=== PATIENT | female | born 1950 | race Caucasian/White ===

== ENCOUNTER 2017-03-28 12:26 | Outpatient (CLI) | payer MEDICARE | END 2017-03-28 12:27 | disposition critical access hospital (66) | LOC: EMS 12:26 | PROVIDERS: ATTEND Surgery | DX: M54.9 Dorsalgia, unspecified (principal) | CPT/HCPCS: A0425; A0427 ==

== ENCOUNTER 2017-03-28 12:41 | Emergency (ER) | payer MEDICARE ==
[2017-03-28] MEDS ORDERED: HYDROmorphone 1 MG/ML SYRINGE IVP STA ×3 (12:52→17:33)
[2017-03-28] MEDS ORDERED: ONDANSETRON 4 MG/2 ML VIAL IVP STA (12:52)
[2017-03-28] MEDS ORDERED: SODIUM CHLORIDE FLUSH 0.9% 10 ML SYRINGE IVP ONE ×3 (12:59→17:46)
[2017-03-28] MEDS ORDERED: SODIUM CHLORIDE 0.9% 1,000 ML IV ONE (12:59)
[2017-03-28] MEDS ORDERED: ONDANSETRON 4 MG/2 ML VIAL ONE (12:59)
[2017-03-28] MEDS ORDERED: HYDROmorphone 1 MG/ML SYRINGE ONE ×3 (12:59→17:38)
--- NOTE | 2017-03-28 13:03 | ED Physician Documentation ---
PD HPI ABD PAIN - Stated complaint Stated Complaint: BACK PX - Chief complaint Chief Complaint: Abd Pain - History obtained from History obtained from: Patient, EMS - History of Present Illness Timing - onset: Other (Sudden onset epigastric pain radiating to the back this morning after eating an Chinese muffin with peanut butter. She has never had this before. She has been vomiting as well. She had a very small bowel movement before and after the pain started. No history of abdominal surgeries, her only surgical history is mastectomies.) Review of Systems Ten Systems: 10 systems reviewed and negative Constitutional: denies: Fever, Chills Cardiac: denies: Chest pain / pressure, Palpitations Respiratory: denies: Dyspnea, Cough GI: reports: Abdominal Pain, Nausea, Vomiting, Constipation. denies: Diarrhea PD PAST MEDICAL HISTORY - Past Medical History Past Medical History: Yes Cardiovascular: None Respiratory: None Neuro: None Endocrine/Autoimmune: None L[employer] ATTENDANT: Breast cancer Psych: Depression, Anxiety Musculoskeletal: Osteoarthritis, Fatigue, Other - Present Medications Home Medications: Ambulatory Orders Medication Instructions Recorded Confirmed Cholecalciferol (Vitamin D3) 2,000 unit PO 03/28/17 [Vitamin D] Loratadine [Allergy] 03/28/17 Lorazepam 1 mg PO 03/28/17 Multivitamin/Iron/Folic Acid 03/28/17 [Centrum Women Tablet] Omeprazole 20 mg PO 03/28/17 Venlafaxine ER [Effexor ER] 150 mg PO DAILY 03/28/17 03/28/17 - Allergies Allergies/Adverse Reactions: Allergies Allergy/AdvReac Type Severity Reaction Status Date / Time No Known Drug Allergies Allergy Verified 03/28/17 12:48 - Social History Does the pt smoke?: No Smoking Status: Never smoker Does the pt drink ETOH?: Yes Does the pt have substance abuse?: No - Family History Family history: reports: Non contributory PD ED PE NORMAL - Vitals Vital signs reviewed: Yes - General General: Alert and oriented X 3, Other (Retching, clearly in pain) - HEENT HEENT: PERRL, EOMI - Neck Neck: Supple, no meningeal sign, No bony TTP - Cardiac Cardiac: RRR, No murmur - Respiratory Respiratory: No respiratory distress, Clear bilaterally - Abdomen Abdomen: Other (Some diffuse tenderness but most obvious in the upper abdomen and right upper quadrant with positive Aviles sign) - Back Back: No CVA TTP, No spinal TTP - Derm Derm: Normal color, Warm and dry - Extremities Extremities: No edema, No calf tenderness / cord - Neuro Neuro: Alert and oriented X 3, Normal speech - Psych Psych: Normal mood, Normal affect Results - Vitals Vitals: Vital Signs - 24 hr 03/28/17 03/28/17 03/28/17 12:44 14:00 15:06 Temperature 35.9 C L Heart Rate 66 91 91 Respiratory 22 18 18 Rate Blood Pressure 132/83 H 169/83 H 136/59 H O2 Saturation 98 96 98 03/28/17 16:40 Temperature Heart Rate 85 Respiratory 18 Rate Blood Pressure 158/69 H O2 Saturation 97 Oxygen O2 Source Nasal cannula Oxygen Flow Rate 2 - EKG (time done) 1309 Rate: Rate (enter#) (84) Rhythm: NSR, LAE Intervals: RBBB Ischemia: Normal ST segments Computer interpretation: Agree with computer - Labs Labs: Laboratory Tests 03/28/17 03/28/17 03/28/17 13:05 13:05 13:05 WBC 12.8 H RBC 4.55 Hgb 12.9 Hct 38.8 MCV 85.3 MCH 28.4 MCHC 33.2 RDW 14.1 Plt Count 254 MPV 8.7 Neut # Not Reportable Lymph # Not Reportable Riley # Not Reportable Eos # Not Reportable Baso # Not Reportable Absolute Nucleated RBC Not Reportable Band Neuts % (Manual) 1 Neutrophils # (Manual) 11.8 H Lymphocytes # (Manual) 0.6 L Monocytes # (Manual) 0.4 Nucleated RBCs Not Reportable Differential Comment MANUAL DIFFERENTIAL Platelet Estimate NORMAL (130-450,000) Platelet Morphology NORMAL APPEARANCE RBC Morph Micro Appear NORMAL APPEARANCE Sodium 137 Potassium 3.8 Chloride 103 Carbon Dioxide 23 Anion Gap 11.0 BUN 18 Creatinine 0.7 Estimated GFR (MDRD) 83 L Glucose 159 H Calcium 9.2 Total Bilirubin 2.8 H AST 166 H ALT 217 H Alkaline Phosphatase 466 H Troponin I < 0.04 Total Protein 7.2 Albumin 3.7 Globulin 3.5 Albumin/Globulin Ratio 1.1 Lipase 33 - Rads (name of study) RUQ Sono Radiology: EMP read contemporaneously (Sonographic Aviles sign in a distended gallbladder containing sludge, with a dilated common bile duct at 17 mm which is a chronic finding.) MRCP Radiology: EMP read contemporaneously (Marketed Intra-and extrahepatic biliary ductal dilatation with heterogenous material in the distal common bile duct recommending evaluation with ERCP.) PD MEDICAL DECISION MAKING - ED course ED course: 66-year-old woman with epigastric and back pain consistent with a biliary etiology on examination. Initial ultrasound demonstrated intra-and extrahepatic biliary dilatation without clear cause. She did have evidence of obstruction and acute hepatitis on labs. This was followed with an MRCP showing likely Choledocholithiasis versus sludge. Alexsander was called for consultation and transfer at 5:35 PM.She was started on Unasyn. Departure - Departure Disposition: 02 Transfer Acute Care Hosp Clinical Impression: Choledocholithiasis with obstruction Qualifiers: Cholecystitis presence: without cholecystitis Qualified Code(s): K80.51 - Calculus of bile duct without cholangitis or cholecystitis with obstruction Condition: Serious
[2017-03-28 13:31] LABS: BASOPHILS % (AUTO) 0.2 %; EOSINOPHILS % (AUTO) 0.4 %; HCT - HEMATOCRIT 38.8 % (37.0-47.0); HGB - HEMOGLOBIN 12.9 g/dL (12.0-16.0); LYMPHOCYTES % (AUTO) 5.5 %; MEAN CORPUSCULAR HEMOGLOBIN 28.4 pg (27.0-31.0); MEAN CORPUSCULAR HGB CONC 33.2 g/dL (32.0-36.0); MEAN CORPUSCULAR VOLUME 85.3 fL (81.0-99.0); MEAN PLATELET VOLUME 8.7 fL (7.9-10.8); MONOCYTES % (AUTO) 4.1 %; NEUTROPHILS % (AUTO) 89.8 %; RED BLOOD COUNT 4.55 10^6/uL (4.20-5.40); RED CELL DISTRIBUTION WIDTH 14.1 % (12.0-15.0); UNCORRECTED WHITE BLOOD COUNT 12.8 x10^3/uL; WHITE BLOOD COUNT 12.8 x10^3/uL (4.8-10.8)
[2017-03-28 13:39] LABS: ALBUMIN/GLOBULIN RATIO 1.1 (1.0-2.2); BILIRUBIN,TOTAL 2.8 mg/dL (0.2-1.0); CALCIUM 9.2 mg/dL (8.5-10.3); CREATININE 0.7 mg/dL (0.4-1.0); POTASSIUM 3.8 mmol/L (3.5-5.0); TOTAL PROTEIN 7.2 g/dL (6.7-8.2)
[2017-03-28 13:49] LABS: NP AUTO DIFFERENTIAL? YES; NP MAN DIFFERENTIAL? NO; PLATELET ESTIMATE, MANUAL NORMAL (130-450,000) (NORMAL); PLATELET MORPHOLOGY NORMAL APPEARANCE (NORMAL)
--- NOTE | 2017-03-28 14:26 | Ultrasound Preliminary Report ---
Exam: US Abdomen Limited IMPRESSION: 1. Positive for ultrasound Aviles's sign in a distended gallbladder containing sludge. Nonspecific fi nding which could represent acalculous cholecystitis versus other upper abdominal inflammatory proces s. 2. Dilated common bile duct at 17 mm. Chronic finding noting that it measured 16 mm on 01/10/2013. 3. 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 [facility] SITE ID: [id number]
[2017-03-28 14:29] LABS: BAND NEUTROPHILS % (MANUAL) 1 %; LYMPHOCYTES % (MANUAL) 5 %; NEUTROPHILS % (MANUAL) 91 %
--- NOTE | 2017-03-28 14:29 | Ultrasound Report ---
EXAM: ABDOMEN ULTRASOUND LIMITED, RUQ EXAM DATE: 03/28/2017 01:57 PM. CLINICAL HISTORY: Abd pain, RUQ TTP. COMPARISON: 05/03/2014. TECHNIQUE: Real-time scanning was performed with static images obtained. FINDINGS: Liver: Visualization of liver and solid organs limited by body habitus. The liver parenchyma appears echogenic. 17.1 cm. Main portal vein flow: Hepatopetal. Gallbladder: Gallbladder contains sludge. Gallbladder is tender to palpation. Gallbladder wall thickn ess upper normal at 2.9 mm Biliary System: CBD measures 17 mm. There is intrahepatic biliary dilatation. Other: There is an echogenic lesion in the inferior lateral right kidney measuring 1.1 cm in diameter . No hydronephrosis of right kidney. IMPRESSION: 1. Positive for ultrasound Aviles's sign in a distended gallbladder containing sludge. Nonspecific fi nding which could represent acalculous cholecystitis versus other upper abdominal inflammatory proces s. 2. Dilated common bile duct at 17 mm. Chronic finding noting that it measured 16 mm on 01/10/2013. 3. 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 [facility] Referring Provider Line: [phone] SITE ID: [id number]
--- NOTE | 2017-03-28 17:22 | MRI Preliminary Report ---
Exam: MRI MRCP W/O IMPRESSION: 1. Marked intrahepatic and extrahepatic biliary ductal dilatation. 2. Heterogeneous material in the distal CBD at the ampulla and layering along the distal common bile duct wall, which could represent sludge and stones and/or mass. Recommend direct evaluation with ERCP . [facility] SITE ID: [id number]
--- NOTE | 2017-03-28 17:25 | MRI Report ---
EXAM: MR ABDOMEN WITHOUT CONTRAST (MR CHOLANGIOPANCREATOGRAPHY) EXAM DATE: 03/28/2017 04:39 PM. CLINICAL HISTORY: Upper abdominal pain. Dilated common bile duct. COMPARISON: Right upper quadrant abdominal ultrasound, same day. TECHNIQUE: Multiplanar breath-hold T1 and T2 sequences obtained through the abdomen on an MR scanner. Dedicated 2D and 3D MRCP sequences obtained through the biliary and pancreatic ducts. No intravenous contrast given. FINDINGS: Lung Bases: Clear as visualized. Liver: Normal size, morphology, and signal. 1.2 cm anterior subcapsular cyst in segment IVb. Gallbladder and Bile Ducts: Distended gallbladder with no wall thickening or visualized stones. Marke d intra-and extrahepatic biliary ductal dilatation, the common bile duct measuring up to 2.5 cm. Hete rogeneous material in the distal CBD at the ampulla measuring approximately 2.6 x 1.8 cm (MRCP series 1401 image 97), and layering along the distal CBD wall (see sagittal series 1001 image 11). Possible thickening of the distal common bile duct wall (see axial series 801 image 2). Pancreas: Normal. No ductal dilatation. Spleen: Normal. Kidneys: Tiny cortical cysts bilaterally. The small right renal AML demonstrated on ultrasound is not seen. No hydronephrosis. Adrenal Glands: Normal. Peritoneal Cavity/GI Tract: Small hiatal hernia. The stomach and visualized small bowel and colon are otherwise unremarkable, without evidence of obstruction or acute inflammatory process. No free fluid or adenopathy. Retroperitoneum: Unremarkable. IMPRESSION: 1. Marked intrahepatic and extrahepatic biliary ductal dilatation. 2. Heterogeneous material in the distal CBD at the ampulla and layering along the distal common bile duct wall, which could represent sludge and stones and/or mass. Recommend direct evaluation with ERCP . [facility] Referring Provider Line: [phone] SITE ID: [id number]
[2017-03-28] MEDS ORDERED: AMPICILLIN/SULBACTAM 3 GM in SODIUM CHLORIDE 0.9% MINIBAG 100 ML IV STA (17:33)
[2017-03-28] MEDS ORDERED: METOCLOPRAMIDE 10 MG/2 ML VIAL IVP STA (17:40)
[2017-03-28] MEDS ORDERED: METOCLOPRAMIDE 10 MG/2 ML VIAL ONE (17:46)
[2017-03-28 19:16] VITALS: BP 121/60
== END 2017-03-28 20:36 | disposition short-term general hospital (02) ==
LOC: EDUNIT# → ED 12:41
DX: K80.51 Calculus of bile duct without cholangitis or cholecystitis with obstruction (principal); I45.10 Unspecified right bundle-branch block; R94.31 Abnormal electrocardiogram [ECG] [EKG]; Z85.3 Personal history of malignant neoplasm of breast; M19.90 Unspecified osteoarthritis, unspecified site
CPT/HCPCS: 36415; 74181; 76705; 80053; 83690; 84484; 85025; 93005; 96365; 96375; 96376; 99284; 99285; J1170

== ENCOUNTER 2017-04-21 17:38 | Outpatient (CLI) | payer MEDICARE ==
--- NOTE | 2017-04-21 18:27 | XRAY Preliminary Report ---
Exam: XR Abdomen 1 View IMPRESSION: Nonobstructive bowel gas pattern. [facility] SITE ID: [id number]
--- NOTE | 2017-04-21 18:29 | XRAY Report ---
EXAM: ABDOMEN RADIOGRAPHY EXAM DATE: 04/21/2017 05:53 PM. CLINICAL HISTORY: CONSTIPATION. COMPARISON: None. TECHNIQUE: 1 view. FINDINGS: Bowel Gas Pattern: There is a paucity of bowel gas. There is no transition zone. Gas is seen in the r ectum without dilated loops. Other: There is a percutaneous drain overlying the right mid abdomen. IMPRESSION: Nonobstructive bowel gas pattern. [facility] Referring Provider Line: [phone] SITE ID: [id number]
== END 2017-04-21 17:39 | disposition home or self-care (01) ==
LOC: DI 17:38
PROVIDERS: ATTEND Family Medicine
DX: K59.00 Constipation, unspecified (principal)
CPT/HCPCS: 74000

== ENCOUNTER 2017-05-27 12:14 | Emergency (ER) | payer MEDICARE ==
--- NOTE | 2017-05-27 14:00 | ED Physician Documentation ---
History of Present Illness - Stated complaint Stated Complaint: POST OP COMPLICATION - Chief complaint Chief Complaint: General - Additonal information Additional information: hx from pt 66 f s/p surgery to remove GB and a mass surgery done at [facility] 05/19 pt had drain pulled and was dced yesterday 05/26 this AM had a large amt of serous fluid drain no fever no pain she called her surgeon but he/she was in surgery so she called her PMD Dr Dutta who advised pt to come to this ER Review of Systems Constitutional: denies: Fever, Chills Cardiac: denies: Chest pain / pressure Respiratory: denies: Dyspnea GI: denies: Abdominal Pain Skin: reports: Other (incision) PD PAST MEDICAL HISTORY - Past Medical History Cardiovascular: None Respiratory: None Neuro: None Endocrine/Autoimmune: None 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 Psych: Depression, Anxiety Musculoskeletal: Osteoarthritis, Fatigue, Other - Past Surgical History Past Surgical History: Yes - Present Medications Home Medications: Ambulatory Orders Medication Instructions Recorded Confirmed Cholecalciferol (Vitamin D3) 2,000 unit PO 03/28/17 [Vitamin D] Loratadine [Allergy] 03/28/17 Lorazepam 1 mg PO 03/28/17 Multivitamin/Iron/Folic Acid 03/28/17 [Centrum Women Tablet] Omeprazole 20 mg PO 03/28/17 Venlafaxine ER [Effexor ER] 150 mg PO DAILY 03/28/17 03/28/17 - Allergies Allergies/Adverse Reactions: Allergies Allergy/AdvReac Type Severity Reaction Status Date / Time No Known Drug Allergies Allergy Verified 05/27/17 12:32 - Social History Does the pt smoke?: No Smoking Status: Never smoker Does the pt drink ETOH?: Yes Does the pt have substance abuse?: No - Immunizations Immunizations are current?: Yes PD ED PE NORMAL - Vitals Vital signs reviewed: Yes - Cardiac Cardiac: RRR - Respiratory Respiratory: No respiratory distress - Abdomen Abdomen: Soft, Other (some erythema and induration along mid incision, non tender, pt does not know if erythema was there prior to dc, no drainage now even with sitting up) - Neuro Neuro: Alert and oriented X 3 Results - Vitals Vitals: Vital Signs - 24 hr 05/27/17 05/27/17 05/27/17 12:25 13:53 15:33 Temperature 36.3 C L 36.5 C 35.9 C L Heart Rate 71 63 64 Respiratory 20 16 16 Rate Blood Pressure 121/72 141/74 H 134/81 H O2 Saturation 96 97 99 Oxygen O2 Source Room air - Rads (name of study) CT AP Radiology: See rad report (see report, no drainable collection, post op changes) PD MEDICAL DECISION MAKING - ED course ED course: d/w pts surgeon in [place] and read the applicable parts of the CT report, also discussed the small amount pof erythema, sounds like a seroma drained, he will see pt tomorrow, rec no ab, will outline redness for reference tomorrow and give pt her CT on a disk Departure - Departure Disposition: 01 Home, Self Care Clinical Impression: Seroma complicating a procedure Condition: Good Instructions: ED Seroma Post Op Comments: I spoke to your surgeon and reviewed the CT scan with him He would like to see you tomorrow as planned.We jessica a line around the redness on your abdomen so he can determine if is worsens in the next 12-24 hr and also we gave you your CT scan on a disk to take to your appointment. For now you can go home. The abdominal pad we applied should collect any further drainage that might occur
--- NOTE | 2017-05-27 15:45 | CT Preliminary Report ---
Exam: CT Abdomen/Pelvis W/O IMPRESSION: 1. Small amount of nonspecific fluid and gas in the gallbladder fossa status post cholecystectomy 2. Generalized inflammation in the right upper quadrant surrounds the gastric antrum, proximal duoden um and hepatic flexure of the colon 3. Common bile duct and pancreatic duct stent seen 4. Inflammation with ill-defined fluid and gas in the abdominal wall beneath the cutaneous chelsi wi thout a walled off necrotic-appearing drainable collection 5. Free intraperitoneal air is most likely iatrogenic from recent surgery 6. Colonic diverticulosis 7. Small amount of free fluid in the pelvis [facility] SITE ID: [id number]
--- NOTE | 2017-05-27 15:48 | CT Report ---
EXAM: CT ABDOMEN AND PELVIS EXAM DATE: 05/27/2017 03:11 PM. CLINICAL HISTORY: Abd pain and dc from incision, ? seroma. COMPARISONS: None. TECHNIQUE: Routine helical CT imaging was performed through the abdomen and pelvis. IV contrast: None . Enteric contrast: No. Reconstructions: Coronal and sagittal. In accordance with CT protocol optimization, one or more of the following dose reduction techniques w ere utilized for this exam: automated exposure control, adjustment of mA and/or KV based on patient s ize, or use of iterative reconstructive technique. FINDINGS: Lung Bases: Trace pericardial fluid. Liver: Pneumobilia. Common bile duct stent in place. Gallbladder/Bile Ducts: Cholecystectomy. Small amount of ill-defined fluid and gas in the gallbladder fossa. Inflammation/edema in the right upper quadrant extends to surround the gastric antrum, proxim al duodenum and hepatic flexure with nodular inflammation extending inferiorly along the right abdomi nal peritoneum posteriorly. Spleen: Normal. Pancreas: Pancreatic duct stent extends from the tail into the duodenum. Adrenal Glands: Normal. Kidneys: Normal. No masses or hydronephrosis. Peritoneal Cavity/Bowel: Colonic diverticulosis. Small amount of free fluid in the cul-de-sac. The ap pendix is well visualized and normal. Mild free intraperitoneal air greatest beneath right hemidiaphragm. Pelvic Organs: Normal. The bladder and visualized pelvic organs are within normal limits. Vasculature: No aneurysms or other significant abnormality. Bones: Severe degenerative disk disease at L4/L5. Other: Abdominal wall inflammation, ill-defined fluid and emphysema seen beneath the cutaneous staple s without a centrally necrotic wall off collection. Inflammation extends through the abdominal wall. IMPRESSION: 1. Small amount of nonspecific fluid and gas in the gallbladder fossa status post cholecystectomy 2. Generalized inflammation in the right upper quadrant surrounds the gastric antrum, proximal duoden um and hepatic flexure of the colon 3. Common bile duct and pancreatic duct stent seen 4. Inflammation with ill-defined fluid and gas in the abdominal wall beneath the cutaneous chelsi wi thout a walled off necrotic-appearing drainable collection 5. Free intraperitoneal air is most likely iatrogenic from recent surgery 6. Colonic diverticulosis 7. Small amount of free fluid in the pelvis [facility] Referring Provider Line: [phone] SITE ID: [id number]
[2017-05-27 16:42] VITALS: BP 134/68
== END 2017-05-27 16:50 | disposition home or self-care (01) ==
LOC: ED 12:14
DX: L76.34 Postprocedural seroma of skin and subcutaneous tissue following other procedure (principal); C50.919 Malignant neoplasm of unspecified site of unspecified female breast
CPT/HCPCS: 74176; 99283

== ENCOUNTER 2017-07-17 08:32 | Outpatient (CLI) | payer MEDICARE ==
[2017-07-17] MEDS ORDERED: GADOBUTROL 7.5 MMOL/7.5 ML VIAL ONE (09:00)
[2017-07-17] MEDS ORDERED: GADOBUTROL 7.5 MMOL/7.5 ML VIAL IVP ONE ×2 (09:45→10:03)
--- NOTE | 2017-07-17 11:17 | MRI Report ---
EXAM: MRI BRAIN WITHOUT AND WITH CONTRAST EXAM DATE: 07/17/2017 09:57 AM. CLINICAL HISTORY: Diplopia. History of breast cancer over 10 years ago. COMPARISON: None. TECHNIQUE: Multiplanar, multisequence T1-weighted and fluid-sensitive MR sequences of the brain were performed. Sequences optimized for routine evaluation. Other: None. IV Contrast: 7 mL Gadavist. FINDINGS: Brain Volume: Normal for age. Parenchyma: No acute hemorrhage, mass, or infarct. An oval focus of T1 hypointense and T2/FLAIR hyper intense signal is seen in the lateral callosal region adjacent to the posterior body of the corpus ca llosum on the left. This measures up to 5 mm in size. A linear focus of similar-appearing white matte r signal change is seen in the right posterior frontal centrum semiovale and abraham radiata. No abnor mal enhancement. Ventricles/Cisterns: No hydrocephalus. No abnormal extra-axial fluid collection or hemorrhage. Orbits: Symmetric and unremarkable. Sella Turcica: The pituitary gland, cavernous sinuses, suprasellar cistern and optic chiasm are unrem arkable. Mild tortuosity of the supracavernous right ICA is seen. This causes elevation and medial de viation of the intracranial right optic nerve, without definite intrinsic signal abnormality. IAC: Symmetric and unremarkable. Vasculature: Normal signal flow void is seen in the major arterial structures at the skull base. Feta l origin of the right [employer]NEY is noted as continuation of the right P-comm. The dural sinuses are patent and enhance normally. Sinuses: No acute sinus disease. Bones: No focal pathologic appearing marrow signal changes. Other: None. IMPRESSION: 1.No acute intracranial abnormality. No infarct, mass, hemorrhage or abnormal enhancement. 2. There are a few punctate foci of matter T2 and FLAIR bright signal seen in the cerebral convexity. This is nonspecific. Differential considerations include nonspecific small vessel ischemic change an d demyelination. 3. Tortuosity of the supracavernous right ICA. Localized mass effect on the intracranial right optic nerve is seen. No definite intrinsic signal abnormality is seen. [facility] Referring Provider Line: [phone] SITE ID: [id number]
== END 2017-07-17 08:33 | disposition home or self-care (01) ==
LOC: DI 08:32
PROVIDERS: ATTEND Physician Assistant Medical
DX: H53.2 Diplopia (principal); I77.1 Stricture of artery; Z85.3 Personal history of malignant neoplasm of breast
CPT/HCPCS: 70553; A9585

== ENCOUNTER 2017-09-15 09:42 | Outpatient (CLI) | payer MEDICARE ==
[2017-09-15 13:04] LABS: ALBUMIN 3.7 g/dL (3.2-5.5); ALBUMIN/GLOBULIN RATIO 1.2 (1.0-2.2); ALKALINE PHOSPHATASE 152 IU/L (42-121); ALT ALANINE AMINOTRANSFERASE 50 IU/L (10-60); AST ASPARTATE AMINOTRANSFERASE 36 IU/L (10-42); BILIRUBIN,TOTAL 0.5 mg/dL (0.2-1.0); BUN - BLOOD UREA NITROGEN 19 mg/dL (6-20); CARBON DIOXIDE - CO2 26 mmol/L (21-32); CHLORIDE 106 mmol/L (101-111); CHOL/HDL RATIO 2.7 (<4.4); CHOLESTEROL 227 mg/dL; CREATININE 0.7 mg/dL (0.4-1.0); GFR - MDRD 83 (>89); GLUCOSE 95 mg/dL (70-100); HDL CHOLESTEROL 83 mg/dL; LDL CHOLESTEROL,CALCULATED 127 mg/dL; LDL/HDL RATIO 1.5 (<4.4); SODIUM 139 mmol/L (135-145); TOTAL PROTEIN 6.7 g/dL (6.7-8.2); VLDL CHOLESTEROL 17 mg/dL
== END 2017-09-15 09:43 | disposition home or self-care (01) ==
LOC: LAB.WCP 09:42
PROVIDERS: ATTEND Family Medicine
DX: R17 Unspecified jaundice (principal); R74.8 Abnormal levels of other serum enzymes; E78.5 Hyperlipidemia, unspecified
CPT/HCPCS: 36415; 80053; 80061; 83721

== ENCOUNTER 2018-08-18 08:38 | Outpatient (CLI) | payer MEDICARE | END 2018-08-18 08:39 | disposition EMS.NT | LOC: EMS 08:38 | PROVIDERS: ATTEND Surgery | DX: S01.21XA Laceration without foreign body of nose, initial encounter (principal); W01.0XXA Fall on same level from slipping, tripping and stumbling without subsequent striking against object, initial encounter; Y93.K1 Activity, walking an animal ==

== ENCOUNTER 2019-09-14 08:00 | Outpatient (CLI) | payer MEDICARE ==
[2019-09-14 18:51] LABS: BASOPHILS % (AUTO) 0.6 %; EOSINOPHILS # (AUTO) 0.1 10^3/uL (0.0-0.7); HGB - HEMOGLOBIN 13.7 g/dL (12.0-16.0); LYMPHOCYTES # (AUTO) 2.3 10^3/uL (1.5-3.5); MEAN CORPUSCULAR HEMOGLOBIN 27.5 pg (27.0-31.0); MEAN CORPUSCULAR HGB CONC 31.1 g/dL (32.0-36.0); MEAN CORPUSCULAR VOLUME 88.4 fL (81.0-99.0); MEAN PLATELET VOLUME 10.3 fL (7.9-10.8); MONOCYTES # (AUTO) 0.4 10^3/uL (0.0-1.0); MONOCYTES % (AUTO) 6.3 %; NEUTROPHILS % (AUTO) 58.8 %; PLT - PLATELET COUNT 343 10^3/uL (130-450); RED BLOOD COUNT 4.98 10^6/uL (4.20-5.40); WHITE BLOOD COUNT 6.9 x10^3/uL (4.8-10.8)
[2019-09-14 19:29] LABS: ALBUMIN 4.1 g/dL (3.2-5.5); ALBUMIN/GLOBULIN RATIO 1.3 (1.0-2.2); ALKALINE PHOSPHATASE 82 IU/L (42-121); ALT ALANINE AMINOTRANSFERASE 27 IU/L (10-60); AST ASPARTATE AMINOTRANSFERASE 27 IU/L (10-42); BILIRUBIN,TOTAL 0.7 mg/dL (0.2-1.0); BUN - BLOOD UREA NITROGEN 20 mg/dL (6-20); CALCIUM 9.6 mg/dL (8.5-10.3); CARBON DIOXIDE - CO2 27 mmol/L (21-32); CHLORIDE 101 mmol/L (101-111); CHOL/HDL RATIO 3.5 (<4.4); CHOLESTEROL 237 mg/dL; CREATININE 0.8 mg/dL (0.4-1.0); GFR - MDRD 71 (>89); GLUCOSE 93 mg/dL (70-100); HDL CHOLESTEROL 68 mg/dL; LDL CHOLESTEROL,CALCULATED 137 mg/dL; SODIUM 138 mmol/L (135-145); TOTAL PROTEIN 7.3 g/dL (6.7-8.2); VLDL CHOLESTEROL 32 mg/dL
== END 2019-09-14 23:59 | disposition home or self-care (01) ==
LOC: LAB.WCP 08:00
PROVIDERS: ATTEND Family Medicine
DX: E78.5 Hyperlipidemia, unspecified (principal); R03.0 Elevated blood-pressure reading, without diagnosis of hypertension
CPT/HCPCS: 36415; 80053; 80061; 83721; 84443; 85025

== ENCOUNTER 2019-09-19 08:19 | Outpatient (CLI) | payer MEDICARE ==
[2019-09-19] MEDS ORDERED: IOVERSOL 320 50 ML VIAL ONE (08:24)
[2019-09-19] MEDS ORDERED: IOVERSOL 320 100 ML VIAL IVP ONE ×2 (08:24→16:02)
[2019-09-19] MEDS ORDERED: IOVERSOL 320 50 ML VIAL PO ONE (16:02)
--- NOTE | 2019-09-20 09:27 | CT Report ---
Reason: ABD PAIN Procedure Date: 09/19/2019 Accession Number: [id number] / [id number] Procedure: CT - Abdomen/Pelvis W CPT Code: Final Report FULL RESULT: EXAM: CT ABDOMEN AND PELVIS EXAM DATE: 09/19/2019 09:48 AM. CLINICAL HISTORY: Abdominal pain. COMPARISONS: ABDOMEN/PELVIS W/O 05/27/2017 2:55 PM ABD/PEL 06/19/2006 1:49 PM. TECHNIQUE: Routine helical CT imaging was performed through the abdomen and pelvis. IV contrast: 100 mL OPTI 320. Enteric contrast: Yes. Reconstructions: Coronal and sagittal. In accordance with CT protocol optimization, one or more of the following dose reduction techniques were utilized for this exam: automated exposure control, adjustment of mA and/or KV based on patient size, or use of iterative reconstructive technique. FINDINGS: Lung Bases: Unremarkable. Possible small hiatal hernia. Liver: 1.2 cm hypodensity at the anterior margin of the liver is without sg change, is consistent with a cyst and likely corresponds with a cyst described on a prior MRCP. There is a mildly exophytic enhancing mass at that the inferior margin of the right lobe measuring approximately 2.3 x 2.4 x 2.3 cm. There was a focal hypodensity at the site on the noncontrast CT from 05/27/2017, without sg change in size. This apparent stability is consistent with a benign finding. However, it was not definitely present on a CT with contrast on 06/19/2006. Gallbladder/Bile Ducts: Status post cholecystectomy. Pneumobilia redemonstrated, presumably related to prior surgery/instrumentation. No sg ductal dilatation. Spleen: Normal. Pancreas: Small amount of air within the pancreatic duct again demonstrated, presumably related to previous instrumentation/surgery. The pancreas otherwise is unremarkable. Adrenal Glands: Normal. Kidneys: Normal. No masses or hydronephrosis. Peritoneal Cavity/Bowel: Normal. No free fluid, free air or adenopathy. No masses or acute inflammatory process. The appendix is well visualized and normal. No bowel obstruction. Colonic diverticulosis without evidence of diverticulitis. Pelvic Organs: Nondistended bladder appears grossly normal. The Visualized pelvic organs are within normal limits. Vasculature: No aneurysms or other significant abnormality. Bones: Degenerative disease of the spine, greatest at L4-L5, without significant change. No definite acute abnormality. Other: There is a very small fat-containing hernia within the superior periumbilical region. Above that level there is diastasis recti and associated anterior eventration into which a transverse colon bulges. IMPRESSION: 1. No definite acute abnormality of the abdomen or pelvis. 2. Status post cholecystectomy. Pneumobilia and gas within the pancreatic duct redemonstrated, presumably related to prior surgery or instrumentation. 3. 2.4 cm enhancing hepatic mass. It is grossly unchanged in size compared with a noncontrast CT from 2017, strongly favoring a benign etiology. However, it appears new compared to 2006. If further characterization is indicated, MR imaging would be recommended. 4. Additional chronic findings, as above. [facility]
== END 2019-09-19 08:20 | disposition home or self-care (01) ==
LOC: DI 08:19
PROVIDERS: ATTEND Family Medicine
DX: R16.0 Hepatomegaly, not elsewhere classified (principal); Z90.49 Acquired absence of other specified parts of digestive tract
CPT/HCPCS: 74177; Q9967

== ENCOUNTER 2019-12-31 14:09 | Outpatient (CLI) | payer MEDICARE | END 2019-12-31 14:10 | disposition critical access hospital (66) | LOC: EMS 14:09 | PROVIDERS: ATTEND Surgery | DX: R42 Dizziness and giddiness (principal); R11.2 Nausea with vomiting, unspecified | CPT/HCPCS: A0425; A0429 ==

== ENCOUNTER 2019-12-31 14:19 | Emergency (ER) | payer MEDICARE ==
[2019-12-31] MEDS ORDERED: IOVERSOL 320 100 ML VIAL IVP ONE ×2 (14:20→14:44)
--- NOTE | 2019-12-31 14:42 | ED Physician Documentation ---
PD HPI FOCAL NEURO - Stated complaint Stated Complaint: DIZZY/VOMITING - Chief complaint Chief Complaint: Cardiac - History obtained from History obtained from: Patient - History of Present Illness Timing - onset: Other (This is a very healthy 69-year-old woman who presents by BLS ambulance for an acute disequilibrium that started about 1:30 PM today. She was going to walk outside and felt like she was veering to the left, and then started sweating and became nauseous and vomited once. She feels pretty much better now, although she still feels like she could not stand up because of the disequilibrium. She denies headache. This is never happened before. Of note she has a chronic diplopia for which she had an MRI a few years ago and ended up seeing a neuro-supervisor pipelines. The MRI was in June 2017 which showed nonspecific T2 and flair intensities most consistent with small vessel ischemic change or demyelination. She also had tortuosity of the Supra cavernous right ICA with localized mass-effect on the intracranial right optic nerve.) Review of Systems Ten Systems: 10 systems reviewed and negative Constitutional: reports: Sweats. denies: Fever, Chills Cardiac: denies: Chest pain / pressure, Palpitations Respiratory: denies: Dyspnea PD PAST MEDICAL HISTORY - Past Medical History Cardiovascular: None Respiratory: None Endocrine/Autoimmune: None EXECUTIVE VICE PRESIDENT: Breast cancer Psych: Depression, Anxiety Musculoskeletal: Osteoarthritis, Fatigue, Other - Past Surgical History Past Surgical History: Yes - Present Medications Home Medications: Ambulatory Orders Medication Instructions Recorded Confirmed Cholecalciferol (Vitamin D3) 2,000 unit PO 03/28/17 [Vitamin D] LORazepam [Lorazepam] 1 mg PO 03/28/17 Loratadine [Allergy] 03/28/17 Multivitamin/Iron/Folic Acid 03/28/17 [Centrum Women Tablet] Omeprazole 20 mg PO 03/28/17 Venlafaxine ER [Effexor ER] 150 mg PO DAILY 03/28/17 03/28/17 - Allergies Allergies/Adverse Reactions: Allergies Allergy/AdvReac Type Severity Reaction Status Date / Time No Known Drug Allergies Allergy Verified 12/31/19 14:30 - Social History Does the pt smoke?: No Smoking Status: Never smoker Does the pt drink ETOH?: Yes Does the pt have substance abuse?: No - Immunizations Immunizations are current?: Yes PD ED PE NORMAL - Vitals Vital signs reviewed: Yes - General General: Alert and oriented X 3, No acute distress - HEENT HEENT: PERRL, Other (She has subtle disconjugate gaze which is most noted when she looks to the right, looks like difficulty with abduction of the left eye, but hard to tell because it is very subtle. Potentially a very mild right facial droop as well.) - Neck Neck: Supple, no meningeal sign, No bony TTP - Cardiac Cardiac: RRR, No murmur - Respiratory Respiratory: No respiratory distress, Clear bilaterally - Abdomen Abdomen: Soft, Non tender - Back Back: No CVA TTP, No spinal TTP - Derm Derm: Normal color, Warm and dry - Extremities Extremities: No edema, No calf tenderness / cord - Neuro Neuro: Alert and oriented X 3, No motor deficit, No sensory deficit, Normal speech NIHSS - Time Time: 14:32 - Level of Consciousness Level of consciousness: (0) Alert, Keenly responsive LOC Questions: (0) Answers both Q's correct LOC Commands: (0) Performs both correctly - Gaze Best Gaze: (0) Normal - Visual Visual: (0) No loss - Facial Palsy Facial Palsy: (0) Normal, symmetrical movement - Motor Arms (both separate) Motor Arm (right): (0) No drift Motor Arm (left): (0) No drift - Motor Legs (both separate) Motor Leg (right): (0) No drift Motor Leg (left): (0) No drift - Limb Ataxia Limb Ataxia: (0) Absent - Sensory Sensory: (0) Normal - Best Language Best Language: (0) No aphasia - Dysarthria Dysarthria: (0) Normal - Extinction and Inattention (formally neg Extinction and inattention: (0) No abnormality - Total Score/Results Total Score/Result: 0 Results - Vitals Vitals: Vital Signs - 24 hr 12/31/19 12/31/19 12/31/19 14:30 15:04 15:30 Temperature 36.7 C Heart Rate 85 64 62 Respiratory 20 11 L 12 Rate Blood Pressure 114/95 H 151/68 H 131/114 H O2 Saturation 100 96 100 12/31/19 12/31/19 12/31/19 16:08 16:30 17:00 Temperature Heart Rate 64 59 L 59 L Respiratory 11 L 13 11 L Rate Blood Pressure 143/69 H 160/72 H 169/69 H O2 Saturation 100 100 100 12/31/19 17:30 Temperature 36.7 C Heart Rate 56 L Respiratory 12 Rate Blood Pressure 149/78 H O2 Saturation 100 Oxygen O2 Source Room air - EKG (time done) 1420 Rate: Rate (enter#) (73) Rhythm: NSR [place]: Normal Intervals: RBBB QRS: Normal Ischemia: Normal ST segments Compare to prior EKG: Unchanged from prior EKG Computer interpretation: Agree with computer - Labs Labs: Laboratory Tests 12/31/19 12/31/19 12/31/19 14:26 14:26 14:26 WBC 7.1 RBC 4.55 Hgb 13.2 Hct 39.3 MCV 86.4 MCH 29.0 MCHC 33.6 RDW 12.3 Plt Count 306 MPV 9.9 Neut # (Auto) 4.1 Lymph # (Auto) 2.3 Prentiss # (Auto) 0.6 Eos # (Auto) 0.1 Baso # (Auto) 0.0 Absolute Nucleated RBC 0.00 Nucleated RBC % 0.0 PT 11.3 INR 1.0 Sodium 139 Potassium 3.1 L Chloride 105 Carbon Dioxide 22 Anion Gap 12.0 BUN 25 H Creatinine 1.2 H Estimated GFR (MDRD) 44 L Glucose 124 H Calcium 9.3 Total Bilirubin 0.6 AST 25 ALT 19 Alkaline Phosphatase 85 Troponin I High Sens Total Protein 7.0 Albumin 4.2 Globulin 2.8 Albumin/Globulin Ratio 1.5 Lipase 37 12/31/19 14:26 WBC RBC Hgb Hct MCV MCH MCHC RDW Plt Count MPV Neut # (Auto) Lymph # (Auto) Prentiss # (Auto) Eos # (Auto) Baso # (Auto) Absolute Nucleated RBC Nucleated RBC % PT INR Sodium Potassium Chloride Carbon Dioxide Anion Gap BUN Creatinine Estimated GFR (MDRD) Glucose Calcium Total Bilirubin AST ALT Alkaline Phosphatase Troponin I High Sens 2.8 Total Protein Albumin Globulin Albumin/Globulin Ratio Lipase PD MEDICAL DECISION MAKING - ED course ED course: This is a 69-year-old woman who presents with an acute disequilibrium. Also could be an atypical vertiginous story to although she does not really endorse a typical spinning type of sensation. Her neurologic examination is abnormal, but it sounds like the abnormalities may be chronic as she already had a work-up for her diplopia. Plain head CT was normal, case was discussed by phone with [facility] tele-stroke neurology who felt that given the very mild deficit and the concern about alternative diagnoses, they did not recommend TPA. I will call them back if there is a large vessel occlusion. He did recommend admission for a subsequent MRI. Subsequent to that, her symptoms completely resolved but cranial imaging including CTA of the head and neck was notable for concern for right carotid anlargment, and CTA neck: Right vertebral artery originates normally from the right subclavian artery, at the level of the C2 lateral mass, within the foramen transversarium, there is a question of a dissection with pseudoaneurysm (2, 304). Apparent pseudoaneurysm measures approximately 1.4 x 3 mm. There may be flow-limiting stenosis. Area is difficult to evaluate secondary to beam-hardening artifact from dental amalgam. MRA of the neck with and without contrast, including T1 fat-saturated pre-contrast imaging through this area would likely be helpful. A mass is present in the area of the left subglottic trachea, this does indent the wall and measures up to approximately 1 cm (2, 148). Finding is concerning for neoplastic process, possibly originating from the thyroid. A parathyroid adenoma could also be considered. Close clinical follow-up is suggested. A second mass is present in the left submandibular gland, measuring up to approximately 9.6 mm (2, 242). Follow-up ultrasound is suggested. Neoplastic process is not excluded. These findings probably needs semiurgent work-up with MRA to at least address the vertebral dissection question. No MRI is available here until Thursday and a call was placed to [facility] [place] for potential transfer at [address] Garcia at [facility] arranged for the patient to go to [place] under the care of Dr. Wu, and cobras were completed. She is stable for transport. Departure - Departure Disposition: 02 Transfer Acute Care Hosp Clinical Impression: Vertebral artery dissection, TIA (transient ischemic attack), Thyroid mass, Submandibular gland mass Condition: Serious
[2019-12-31 14:50] LABS: BASOPHILS % (AUTO) 0.4 %; EOSINOPHILS # (AUTO) 0.1 10^3/uL (0.0-0.7); EOSINOPHILS % (AUTO) 1.3 %; HGB - HEMOGLOBIN 13.2 g/dL (12.0-16.0); LYMPHOCYTES # (AUTO) 2.3 10^3/uL (1.5-3.5); LYMPHOCYTES % (AUTO) 32.1 %; MEAN CORPUSCULAR HGB CONC 33.6 g/dL (32.0-36.0); MEAN CORPUSCULAR VOLUME 86.4 fL (81.0-99.0); MEAN PLATELET VOLUME 9.9 fL (7.9-10.8); MONOCYTES # (AUTO) 0.6 10^3/uL (0.0-1.0); NEUTROPHILS # (AUTO) 4.1 10^3/uL (1.5-6.6); NEUTROPHILS % (AUTO) 57.9 %; PLT - PLATELET COUNT 306 10^3/uL (130-450); RED BLOOD COUNT 4.55 10^6/uL (4.20-5.40); RED CELL DISTRIBUTION WIDTH 12.3 % (12.0-15.0); WHITE BLOOD COUNT 7.1 x10^3/uL (4.8-10.8)
[2019-12-31 15:00] LABS: PT - PROTHROMBIN TIME 11.3 secs (9.9-12.6)
[2019-12-31 15:01] LABS: ALBUMIN 4.2 g/dL (3.2-5.5); ALBUMIN/GLOBULIN RATIO 1.5 (1.0-2.2); BILIRUBIN,TOTAL 0.6 mg/dL (0.2-1.0); CALCIUM 9.3 mg/dL (8.5-10.3); CREATININE 1.2 mg/dL (0.4-1.0)
--- NOTE | 2019-12-31 15:08 | CT Report ---
Reason: stroke like symptoms Procedure Date: 12/31/2019 Accession Number: [id number] / [id number] Procedure: CT - Head W/O Stroke Protocol CPT Code: Final Report FULL RESULT: EXAM: CT HEAD WITHOUT CONTRAST COMPARISON: BRAIN W/WO 07/17/2017 9:00 AM. CLINICAL HISTORY: Stroke like symptoms.Left-sided facial droop, left neck pain, dizziness, last normal was at 1200 today (noon) CR:0 GFR: 0 IV CONTRAST: Optiray 320 ml: 80 PO CONTRAST: *NO PO CONTRAST PRIORS: N. TECHNIQUE: Axial CT images were obtained from the foramen magnum to the vertex without contrast In accordance with CT protocol optimization, one or more of the following dose reduction techniques were utilized for this exam: automated exposure control, adjustment of mA and/or KV based on patient size, or use of iterative reconstructive technique. FINDINGS: No intracranial hemorrhage. No masses. Ventricular size is normal. No unexpected intra-or extra-axial fluid collections. ASPECT score is estimated as 10 on each the left and the right. Mastoids are clear. Middle ears are clear. Temporomandibular joints are normally located. No dense vessels. IMPRESSION: No intra-intracranial hemorrhage, mass, or other discrete acute process identified. ASPECT score is estimated as 10 on each the left and the right. The critical test notification system was initiated by Dr. Ed Levin at 03:06 PM on 12/31/2019. The above critical test findings were discussed with Aron Encarnacion by Dr. Ed Levin at 03:09 PM on 12/31/2019.
--- NOTE | 2019-12-31 15:42 | CT Report ---
Reason: L sided facial droop Procedure Date: 12/31/2019 Accession Number: [id number] / [id number] Procedure: CT - ANGIO HEAD W/WO CPT Code: Final Report FULL RESULT: EXAM: CTA HEAD COMPARISON: HEAD W/O STROKE PROTOCOL 12/31/2019 2:46 PM CLINICAL HISTORY: Comments: Left-sided facial droop, left neck pain, dizziness, last normal was at 1200 today (noon). TECHNIQUE: Axial CT images were obtained through the head during arterial phase after intravenous Iodinated Contrast OPTIRAY 320 80 mL. Pre-and postcontrast head CT is performed. 3 dimensional MIP reconstructions are created from axial data. Stenosis is measured by NASCET type criteria. In accordance with CT protocol optimization, one or more of the following dose reduction techniques were utilized for this exam: automated exposure control, adjustment of mA and/or KV based on patient size, or use of iterative reconstructive technique. FINDINGS: Postcontrast head CT: No abnormal parenchymal enhancement. No masses. Mastoids are clear. Middle ears are clear. No lytic or blastic bone lesions are seen. No evident abnormality of the dural venous sinuses or deep venous structures is identified. Head CTA: Right internal carotid artery: No evident hemodynamically significant stenosis or aneurysm is identified through the terminus. There is fusiform enlargement of the right internal carotid artery through the cavernous segment, measuring up to 6 mm, of uncertain clinical significance. Right M1, M2 and visualized distal segments are unremarkable. Right A1, A2 and visualized distal segments are unremarkable. Left internal carotid artery: No evident hemodynamically significant stenosis or aneurysm is identified through the terminus. Left A1, A2 and visualized distal segments are unremarkable. Left M1, M2 and visualized distal segments are unremarkable. Posterior circulation: Intracranial right vertebral artery is unremarkable. Intracranial left vertebral artery shows fusiform enlargement, measuring up to approximately 4.6 mm, of uncertain clinical significance. No focal aneurysm. Basilar artery is unremarkable to its terminus. Left P1, P2 and visualized distal segments are unremarkable. There is a near right [employer], with corresponding hypoplastic right P1 segment. Right P2 and visualized distal segments are unremarkable. No evident abnormality of the dural venous sinuses or deep venous structures is identified on this arterial phase study. IMPRESSION: Postcontrast head CT: No abnormal parenchymal enhancement. No masses. Head CTA: No evident hemodynamically significant intracranial arterial stenosis or focal aneurysm. No arterial occlusions. There is fusiform enlargement of the right internal carotid artery through the cavernous segment, and of the left intracranial vertebral artery, findings are nonspecific, and of uncertain clinical significance.
--- NOTE | 2019-12-31 15:50 | CT Report ---
Reason: L sided facial droop, L neck pain Procedure Date: 12/31/2019 Accession Number: [id number] / [id number] Procedure: CT - ANGIO NECK W CPT Code: Final Report FULL RESULT: EXAM: CTA NECK COMPARISON: ANGIO HEAD W/WO 12/31/2019 2:46 PM. CLINICAL HISTORY: Left - sided facial droop, left neck pain,dizziness, last normal was at 1200 today (noon). TECHNIQUE: Axial CT images were obtained through the neck during arterial phase after intravenous Optiray 320iodinated contrast. 3 dimensional MIP reconstructions are created from axial data. Stenosis is measured by NASCET type criteria. In accordance with CT protocol optimization, one or more of the following dose reduction techniques were utilized for this exam: automated exposure control, adjustment of mA and/or KV based on patient size, or use of iterative reconstructive technique. FINDINGS: Visualized right upper chest shows no pulmonary nodules or masses. No pneumothorax. Visualized left upper chest shows no pulmonary nodules or masses. No pneumothorax. Visualized upper mediastinum shows no evident abnormality. A mass is present in the area of the left subglottic trachea, this does indent the wall and measures up to approximately 1 cm (2, 148). Finding is concerning for neoplastic process, possibly originating from the thyroid. A parathyroid adenoma could also be considered. Close clinical follow-up is suggested. Larynx itself is relatively unremarkable. Epiglottis is unremarkable. No base of tongue mass. No retropharyngeal fluid. There is multilevel cervical spondylosis, without high-grade bony canal stenosis. Evaluation of the intracranial vasculature is deferred to dedicated imaging performed today. A second mass is present in the left submandibular gland, measuring up to approximately 9.6 mm (2, 242). Follow-up ultrasound is suggested. A neoplastic process is not excluded. No discrete cervical adenopathy is identified on the right. No discrete adenopathy on the left. Arterial structures: Right carotid artery: Right common carotid artery originates normally from the brachiocephalic, it is unremarkable to the bifurcation. Proximal right internal carotid artery shows calcification, stenosis is estimated as less than 50% relative to distal normal vessel. No evident hemodynamically significant stenosis or dissection is identified to the skull base. Left carotid artery: Left common carotid artery originates normally from the aortic arch, "bovine" origin, shows no evident hemodynamically significant stenosis or dissection to the bifurcation. Left internal carotid artery shows no evident hemodynamically significant stenosis or dissection to the skull base. Posterior circulation: Left vertebral artery originates normally from the left subclavian artery, shows no evident hemodynamically significant stenosis or dissection to the dural ring. There is estimated 30-40% stenosis at the left vertebral artery origin. Right vertebral artery originates normally from the right subclavian artery, at the level of the C2 lateral mass, within the foramen transversarium, there is a question of a dissection with pseudoaneurysm (2, 304). Apparent pseudoaneurysm measures approximately 1.4 x 3 mm. There may be flow-limiting stenosis. Area is difficult to evaluate secondary to beam-hardening artifact from dental amalgam. MRA of the neck with and without contrast, including T1 fat-saturated imaging through this area would likely be helpful. IMPRESSION: Right vertebral artery originates normally from the right subclavian artery, at the level of the C2 lateral mass, within the foramen transversarium, there is a question of a dissection with pseudoaneurysm (2, 304). Apparent pseudoaneurysm measures approximately 1.4 x 3 mm. There may be flow-limiting stenosis. Area is difficult to evaluate secondary to beam-hardening artifact from dental amalgam. MRA of the neck with and without contrast, including T1 fat-saturated pre-contrast imaging through this area would likely be helpful. A mass is present in the area of the left subglottic trachea, this does indent the wall and measures up to approximately 1 cm (2, 148). Finding is concerning for neoplastic process, possibly originating from the thyroid. A parathyroid adenoma could also be considered. Close clinical follow-up is suggested. A second mass is present in the left submandibular gland, measuring up to approximately 9.6 mm (2, 242). Follow-up ultrasound is suggested. Neoplastic process is not excluded.
[2019-12-31] MEDS ORDERED: ASPIRIN CHEW 81 MG TABLET PO STA (16:19)
[2019-12-31 20:41] VITALS: BP 143/84
== END 2019-12-31 20:41 | disposition short-term general hospital (02) ==
LOC: EDUNIT# → ED 14:19
DX: G45.9 Transient cerebral ischemic attack, unspecified (principal); I77.74 Dissection of vertebral artery; E07.89 Other specified disorders of thyroid; K11.8 Other diseases of salivary glands
CPT/HCPCS: 36415; 70496; 70498; 80053; 83690; 84484; 85025; 85610; 93005; 99285; A9270; Q9967; 70450

== ENCOUNTER 2020-02-17 08:00 | Outpatient (CLI) | payer MEDICARE ==
[2020-02-17 12:21] LABS: BASOPHILS # (AUTO) 0.1 10^3/uL (0.0-0.1); BASOPHILS % (AUTO) 0.6 %; EOSINOPHILS # (AUTO) 0.1 10^3/uL (0.0-0.7); EOSINOPHILS % (AUTO) 1.8 %; HGB - HEMOGLOBIN 12.9 g/dL (12.0-16.0); LYMPHOCYTES # (AUTO) 1.8 10^3/uL (1.5-3.5); LYMPHOCYTES % (AUTO) 22.4 %; MEAN CORPUSCULAR HEMOGLOBIN 27.2 pg (27.0-31.0); MEAN CORPUSCULAR HGB CONC 30.4 g/dL (32.0-36.0); MEAN CORPUSCULAR VOLUME 89.7 fL (81.0-99.0); MEAN PLATELET VOLUME 10.1 fL (7.9-10.8); MONOCYTES # (AUTO) 0.5 10^3/uL (0.0-1.0); MONOCYTES % (AUTO) 5.9 %; NEUTROPHILS # (AUTO) 5.4 10^3/uL (1.5-6.6); NEUTROPHILS % (AUTO) 68.8 %; PLT - PLATELET COUNT 361 10^3/uL (130-450); RED BLOOD COUNT 4.74 10^6/uL (4.20-5.40); RED CELL DISTRIBUTION WIDTH 13.9 % (12.0-15.0); WHITE BLOOD COUNT 7.8 x10^3/uL (4.8-10.8)
[2020-02-17 12:56] LABS: ALBUMIN/GLOBULIN RATIO 1.2 (1.0-2.2); BILIRUBIN,TOTAL 0.7 mg/dL (0.2-1.0); CALCIUM 9.2 mg/dL (8.5-10.3); TOTAL PROTEIN 7.3 g/dL (6.7-8.2)
== END 2020-02-17 23:59 | disposition home or self-care (01) ==
LOC: LAB.WCP 08:00
PROVIDERS: ATTEND Family Medicine
DX: G45.9 Transient cerebral ischemic attack, unspecified (principal); E78.5 Hyperlipidemia, unspecified; D15.1 Benign neoplasm of heart
CPT/HCPCS: 36415; 80053; 85025

== ENCOUNTER 2020-02-22 09:50 | Outpatient (CLI) | payer MEDICARE | END 2020-02-22 09:51 | disposition home or self-care (01) | LOC: DI 09:50 | PROVIDERS: ATTEND Internal Medicine Cardiovascular Disease | DX: D21.9 Benign neoplasm of connective and other soft tissue, unspecified (principal) | CPT/HCPCS: 93306 ==

== ENCOUNTER 2020-10-04 08:19 | Outpatient (CLI) | payer MEDICARE ==
[2020-10-04 11:58] LABS: BASOPHILS % (AUTO) 0.6 %; EOSINOPHILS # (AUTO) 0.1 10^3/uL (0.0-0.7); EOSINOPHILS % (AUTO) 1.3 %; HGB - HEMOGLOBIN 14.6 g/dL (12.0-16.0); LYMPHOCYTES # (AUTO) 1.6 10^3/uL (1.5-3.5); LYMPHOCYTES % (AUTO) 31.4 %; MEAN CORPUSCULAR HEMOGLOBIN 28.9 pg (27.0-31.0); MEAN CORPUSCULAR HGB CONC 31.7 g/dL (32.0-36.0); MEAN CORPUSCULAR VOLUME 91.3 fL (81.0-99.0); MEAN PLATELET VOLUME 10.3 fL (7.9-10.8); MONOCYTES # (AUTO) 0.4 10^3/uL (0.0-1.0); MONOCYTES % (AUTO) 6.7 %; NEUTROPHILS # (AUTO) 3.1 10^3/uL (1.5-6.6); NEUTROPHILS % (AUTO) 59.6 %; PLT - PLATELET COUNT 298 10^3/uL (130-450); RED BLOOD COUNT 5.05 10^6/uL (4.20-5.40); RED CELL DISTRIBUTION WIDTH 12.1 % (12.0-15.0); WHITE BLOOD COUNT 5.2 x10^3/uL (4.8-10.8)
[2020-10-04 12:31] LABS: ALBUMIN 4.2 g/dL (3.2-5.5); ALBUMIN/GLOBULIN RATIO 1.4 (1.0-2.2); ALKALINE PHOSPHATASE 70 IU/L (42-121); ALT ALANINE AMINOTRANSFERASE 20 IU/L (10-60); AST ASPARTATE AMINOTRANSFERASE 21 IU/L (10-42); BILIRUBIN,TOTAL 0.5 mg/dL (0.2-1.0); BUN - BLOOD UREA NITROGEN 21 mg/dL (6-20); CALCIUM 9.5 mg/dL (8.5-10.3); CARBON DIOXIDE - CO2 27 mmol/L (21-32); CHLORIDE 103 mmol/L (101-111); CHOL/HDL RATIO 3.3 (<4.4); CHOLESTEROL 281 mg/dL; GLUCOSE 98 mg/dL (70-100); HDL CHOLESTEROL 86 mg/dL; LDL CHOLESTEROL,CALCULATED 178 mg/dL; LDL/HDL RATIO 2.1 (<4.4); TOTAL PROTEIN 7.1 g/dL (6.7-8.2); VLDL CHOLESTEROL 17 mg/dL
== END 2020-10-04 23:59 | disposition home or self-care (01) ==
LOC: LAB.WCP 08:19
PROVIDERS: ATTEND Family Medicine
DX: R03.0 Elevated blood-pressure reading, without diagnosis of hypertension (principal); E78.5 Hyperlipidemia, unspecified; E07.9 Disorder of thyroid, unspecified
CPT/HCPCS: 36415; 80053; 80061; 83721; 84443; 85025

== ENCOUNTER 2022-06-02 07:50 | Outpatient (CLI) | payer MEDICARE ==
[2022-06-02 08:07] LABS: BASOPHILS % (AUTO) 0.6 %; EOSINOPHILS # (AUTO) 0.1 10^3/uL (0.0-0.7); EOSINOPHILS % (AUTO) 1.5 %; HCT - HEMATOCRIT 43.3 % (37.0-47.0); HGB - HEMOGLOBIN 13.8 g/dL (12.0-16.0); LYMPHOCYTES # (AUTO) 1.6 10^3/uL (1.5-3.5); MEAN CORPUSCULAR HEMOGLOBIN 27.8 pg (27.0-31.0); MEAN CORPUSCULAR HGB CONC 31.9 g/dL (32.0-36.0); MEAN CORPUSCULAR VOLUME 87.3 fL (81.0-99.0); MEAN PLATELET VOLUME 9.9 fL (7.9-10.8); MONOCYTES # (AUTO) 0.3 10^3/uL (0.0-1.0); MONOCYTES % (AUTO) 6.1 %; NEUTROPHILS # (AUTO) 3.4 10^3/uL (1.5-6.6); NEUTROPHILS % (AUTO) 62.4 %; PLT - PLATELET COUNT 282 10^3/uL (130-450); RED BLOOD COUNT 4.96 10^6/uL (4.20-5.40); RED CELL DISTRIBUTION WIDTH 12.6 % (12.0-15.0); WHITE BLOOD COUNT 5.4 x10^3/uL (4.8-10.8)
[2022-06-02 08:20] LABS: ALBUMIN/GLOBULIN RATIO 1.3 (1.0-2.2); ALKALINE PHOSPHATASE 71 IU/L (42-121); ALT ALANINE AMINOTRANSFERASE 17 IU/L (10-60); AST ASPARTATE AMINOTRANSFERASE 18 IU/L (10-42); BILIRUBIN,TOTAL 0.6 mg/dL (0.2-1.0); BUN - BLOOD UREA NITROGEN 20 mg/dL (6-20); CALCIUM 9.2 mg/dL (8.5-10.3); CARBON DIOXIDE - CO2 29 mmol/L (21-32); CHLORIDE 102 mmol/L (101-111); CHOL/HDL RATIO 3.4 (<4.4); CHOLESTEROL 250 mg/dL; CREATININE 0.9 mg/dL (0.4-1.0); GFR - MDRD 61 (>89); GLUCOSE 96 mg/dL (70-100); HDL CHOLESTEROL 74 mg/dL; LDL CHOLESTEROL,CALCULATED 158 mg/dL; LDL/HDL RATIO 2.1 (<4.4); POTASSIUM 4.2 mmol/L (3.5-5.0); SODIUM 138 mmol/L (135-145); TOTAL PROTEIN 7.1 g/dL (6.7-8.2); TRIGLYCERIDES 89 mg/dL; VLDL CHOLESTEROL 18 mg/dL
[2022-06-02 08:33] LABS: THYROID STIMULATING HORMONE 2.61 uIU/mL (0.34-5.60)
[2022-06-02] MEDS ORDERED: iohexoL-300 100 ML VIAL ONE (08:36)
--- NOTE | 2022-06-02 09:33 | DEXA Report ---
PROCEDURE: Dexa Spine and/or Hip INDICATIONS: POST MENOPAUSAL TECHNIQUE: Dual energy x-ray absorptiometry (DXA) was performed on a [email or web address] System. Regions measur ed are the AP Spine, femoral neck, and if needed forearm. COMPARISON: None. FINDINGS: Lumbar Spine: Bone Mineral Density 1.18 g/cm/cm,T score 0, Left Hip: Bone Mineral Density 1.04 g/cm/cm,T score 0.3, Left Femoral Neck: Bone Mineral Density 0.97 g/cm/cm, T score -0.5, (T score greater or equal to -1.0: NORMAL) (T score from -1.1 to -2.4: OSTEOPENIA) (T score less than or equal to -2.5 to: OSTEOPOROSIS) Impression: Normal lumbar spine and left/femoral neck bone mineral density. Patients with diagnosis of osteoporosis or osteopenia should have regular bone mineral density assess ment. For those eligible for Medicare, routine testing is allowed once every 2 years. Testing frequ ency can be increased for patients who have rapidly progressing disease or for those who are receivin g medical therapy to restore bone mass. Reviewed by: Wicho Easley MD on 06/02/2022 9:31 AM PDT Approved by: Wicho Easley MD on 06/02/2022 9:31 AM PDT Station ID: [id number]
[2022-06-02] MEDS ORDERED: iohexoL-300 100 ML VIAL IVP ONE (10:07)
--- NOTE | 2022-06-02 18:23 | CT Report ---
PROCEDURE: SOFT TISSUE NECK W INDICATIONS: POST MENOPAUSAL, DISORDER LARYNX,SUBMANDIBULAR MAS CONTRAST: 100 cc Isovue 300 TECHNIQUE: After the administration of intravenous contrast, 3.0 mm axial sections acquired from the sella to th e aortic arch. Additional oblique axial 3.0 mm sections acquired through the pharynx. 3 mm thick co shemar reformats were generated. For radiation dose reduction, the following was used: automated exp osure control, adjustment of mA and/or kV according to patient size. COMPARISON: 12/31/2019 FINDINGS: Image quality: Excellent. Lymph nodes: No enlarged lymph nodes seen throughout the neck. Vessels: Visualized vasculature appears patent. Neck spaces: The oropharynx, nasopharynx, and pharynx demonstrate no mucosal lesions. The vocal cor ds, false vocal cords, pyriform sinuses, epiglottis, vallecula, and tongue base all appear normal. E xtramucosal spaces appear unremarkable. Glands: There is an enhancing mass seen within the posterior aspect of the left submandibular gland, as on series 4 image 59 and on series 6 image 38 that measures 11 x 11 x 12 mm. The right submandibular gland is unremarkable. The parotid glands appear normal. The thyroid is normal in size and there are no incidental findings . Miscellaneous: Visualized brain and orbits appear normal. Lung apices appear clear. Superficial so ft tissues appear normal. Bones: No suspicious bony lesions. Visualized sinuses and mastoids appear unremarkable. Sternotomy wires are partially seen. Moderate lower cervical spine degenerative changes are seen. IMPRESSION: 12 mm enhancing mass seen within the left posterior submandibular gland. Please correlate with known patient history. If clinically appropriate, please consider ultrasound-guided percutaneous fine needle aspiration. Reviewed by: Jim Mayers MD on 06/02/2022 5:21 PM KIMBERLY Approved by: Jim Mayers MD on 06/02/2022 5:21 PM AKEM Station ID: [id number]
== END 2022-06-02 07:51 | disposition home or self-care (01) ==
LOC: LAB 07:50
PROVIDERS: ATTEND Physician Assistant
DX: R22.1 Localized swelling, mass and lump, neck (principal); Z78.0 Asymptomatic menopausal state; Z51.81 Encounter for therapeutic drug level monitoring; E78.5 Hyperlipidemia, unspecified; Z79.899 Other long term (current) drug therapy
CPT/HCPCS: 36415; 70491; 77080; 80053; 80061; 84443; 85025; Q9967; 83721

== ENCOUNTER 2024-01-06 10:37 | Outpatient (CLI) | payer MEDICARE | END 2024-01-06 23:59 | disposition EMS.NT | LOC: EMS 10:37 | DX: H53.131 Sudden visual loss, right eye (principal) ==

== ENCOUNTER 2024-01-06 15:06 | Emergency (ER) | payer MEDICARE ==
--- NOTE | 2024-01-06 15:34 | ED Physician Documentation ---
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 This morning at 9:30 AM she developed right-sided binoculars homonymous hemianopsia. She has no other neurosymptoms but finds it hard to walk because of this. EMS was summoned and although reportedly they encouraged her to come to the hospital, they also mention the possibility of going to the test grader instead. She did that and after evaluation said that her eyes were okay but was referred here for likely stroke. 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 Psych: Depression, Anxiety Musculoskeletal: Osteoarthritis, Fatigue, Other - Past Surgical History Past Surgical History: Yes - Present Medications Home Medications: Ambulatory Orders Medication Instructions Recorded Confirmed Loratadine [Allergy] 10 mg PO PRN PRN 03/28/17 01/06/24 Multivitamin/Iron/Folic Acid 1 tab PO DAILY 03/28/17 01/06/24 [Centrum Women Tablet] Omeprazole 20 mg PO DAILY 03/28/17 01/06/24 Venlafaxine ER [Effexor ER] 150 mg PO DAILY 03/28/17 01/06/24 Atorvastatin Calcium [Lipitor] 80 mg PO DAILY #30 tablet 01/06/24 - Allergies Allergies/Adverse Reactions: Allergies Allergy/AdvReac Type Severity Reaction Status Date / Time No Known Drug Allergies Allergy Verified 12/31/19 14:30 - Social History Does the pt smoke?: No Smoking Status: Never smoker Does the pt drink ETOH?: Yes Does the pt have substance abuse?: No - Immunizations Immunizations are current?: Yes PD ED PE NORMAL - Vitals Vital signs reviewed: Yes - General General: Alert and oriented X 3, No acute distress - HEENT HEENT: Other (Pupils are widely dilated after recent visit to ophthalmology and nonreactive.) - Neck Neck: Supple, no meningeal sign, No bony TTP - Cardiac Cardiac: RRR, No murmur - Respiratory Respiratory: No respiratory distress, Clear bilaterally - Abdomen Abdomen: Non tender - Neuro Neuro: Alert and oriented X 3, No motor deficit, No sensory deficit, Normal speech Eye Opening: Spontaneous Motor: Obeys Commands Verbal: Oriented GCS Score: 15 NIHSS - Time Time: 15:25 - Level of Consciousness Level of consciousness: (0) Alert, Keenly responsive LOC Questions: (0) Answers both Q's correct LOC Commands: (0) Performs both correctly - Gaze Best Gaze: (0) Normal - Visual Visual: (3) Bilateral Hemianopia - Facial Palsy Facial Palsy: (0) Normal, symmetrical movement - Motor Arms (both separate) Motor Arm (right): (0) No drift Motor Arm (left): (0) No drift - Motor Legs (both separate) Motor Leg (right): (0) No drift Motor Leg (left): (0) No drift - Limb Ataxia Limb Ataxia: (0) Absent - Sensory Sensory: (0) Normal - Best Language Best Language: (0) No aphasia - Dysarthria Dysarthria: (0) Normal - Extinction and Inattention (formally neg Extinction and inattention: (0) No abnormality - Total Score/Results Total Score/Result: 3 Results - Vitals Vitals: Vital Signs - 24 hr 01/06/24 01/06/24 01/06/24 15:12 15:48 18:00 Temperature 36.8 C Heart Rate 63 61 62 Respiratory 16 15 14 Rate Blood Pressure 170/88 H 102/85 H 99/54 L O2 Saturation 99 96 100 Oxygen O2 Source Room air - EKG (time done) 1552 EKG releavant findings:: EKG personally interpreted by author of this note. Relevant findings are: Rate: Rate (enter#) (52) Rhythm: NSR [place]: Normal Intervals: RBBB QRS: Normal Ischemia: Normal ST segments - Labs Labs: Laboratory Tests 01/06/24 01/06/24 01/06/24 15:44 15:44 15:44 WBC 7.1 RBC 4.42 Hgb 12.3 Hct 38.7 MCV 87.6 MCH 27.8 MCHC 31.8 L RDW 12.8 Plt Count 272 MPV 10.3 Neut # (Auto) 4.7 Lymph # (Auto) 1.9 [place] # (Auto) 0.5 Eos # (Auto) 0.1 Baso # (Auto) 0.0 Absolute Nucleated RBC 0.00 Nucleated RBC % 0.0 PT 11.6 INR 1.1 Sodium 140 Potassium 3.6 Chloride 106 Carbon Dioxide 29 Anion Gap 5.0 L BUN 23 H Creatinine 0.9 Estimated GFR (MDRD) 61 L Glucose 109 H Calcium 9.2 Total Bilirubin 0.3 AST 14 ALT 10 Alkaline Phosphatase 77 Total Protein 6.2 L Albumin 3.8 Globulin 2.4 Albumin/Globulin Ratio 1.6 - Rads (name of study) MRI of the brain demonstrating acute left occipital infarct. Relevant Findings:: Final report received, EMP independent interpretation of test PD Medical Decision Making - ED course ED course: She has lost completely her site to the right of midline in both eyes. This would be suggestive of a left occipital stroke. She arrives outside of the timeframe for consideration for TNK. CT and MRI imaging does demonstrate the left occipital stroke, there is no sign of vascular issue. She was administered aspirin and I discussed the case with Dr. Young of telestroke who agrees with aspirin, permissive hypertension, a statin, and needs an echocardiogram as well as cardiac monitoring. Decision to admit was made at 6 PM, but unfortunately the hospital is full and she will be boarding in the emergency department pending completion of cardiac monitoring and echo. Care to overnight emergency physician at 7 PM shift change. Departure - Departure Clinical Impression: Cerebrovascular accident (CVA) Qualifiers: CVA mechanism: unspecified Qualified Code(s): I63.9 - Cerebral infarction, unspecified Condition: Good Record reviewed to determine appropriate education?: Yes Instructions: ED Stroke Completed Prescriptions: Atorvastatin Calcium [Lipitor] 80 mg PO DAILY #30 tablet Comments: You were seen today for stroke that has affected the right side of your vision. The stroke is in the left occipital lobe. You may or may not have some improvement of the stroke symptoms. Given your history of atrial myxoma the neurologist has recommended an echocardiogram which we are keeping in the emergency department as well as cardiac monitoring. You should follow-up with your primary care physician for further evaluation and treatment, next available appointment. You should take a baby aspirin a day in addition to the cholesterol medication. Return for new or worsening symptoms. I sent the prescription for the cholesterol medication electronically to [facility]. Forms: PCP List
[2024-01-06 15:50] LABS: BASOPHILS % (AUTO) 0.6 %; EOSINOPHILS # (AUTO) 0.1 10^3/uL (0.0-0.7); EOSINOPHILS % (AUTO) 1.1 %; HCT - HEMATOCRIT 38.7 % (37.0-47.0); HGB - HEMOGLOBIN 12.3 g/dL (12.0-16.0); LYMPHOCYTES # (AUTO) 1.9 10^3/uL (1.5-3.5); LYMPHOCYTES % (AUTO) 26.3 %; MEAN CORPUSCULAR HEMOGLOBIN 27.8 pg (27.0-31.0); MEAN CORPUSCULAR HGB CONC 31.8 g/dL (32.0-36.0); MEAN CORPUSCULAR VOLUME 87.6 fL (81.0-99.0); MEAN PLATELET VOLUME 10.3 fL (7.9-10.8); MONOCYTES # (AUTO) 0.5 10^3/uL (0.0-1.0); MONOCYTES % (AUTO) 6.4 %; NEUTROPHILS # (AUTO) 4.7 10^3/uL (1.5-6.6); NEUTROPHILS % (AUTO) 65.3 %; PLT - PLATELET COUNT 272 10^3/uL (130-450); RED BLOOD COUNT 4.42 10^6/uL (4.20-5.40); RED CELL DISTRIBUTION WIDTH 12.8 % (12.0-15.0); WHITE BLOOD COUNT 7.1 x10^3/uL (4.8-10.8)
[2024-01-06 16:03] LABS: ALBUMIN 3.8 g/dL (3.2-5.5); ALBUMIN/GLOBULIN RATIO 1.6 (1.0-2.2); BILIRUBIN,TOTAL 0.3 mg/dL (0.2-1.0); CALCIUM 9.2 mg/dL (8.5-10.3); CREATININE 0.9 mg/dL (0.6-1.3); POTASSIUM 3.6 mmol/L (3.5-4.5); TOTAL PROTEIN 6.2 g/dL (6.4-8.9)
[2024-01-06 16:15] LABS: INR 1.1 (0.8-1.2); PT - PROTHROMBIN TIME 11.6 secs (9.9-12.6)
[2024-01-06] MEDS ORDERED: iohexoL-300 100 ML VIAL ONE (16:24)
--- NOTE | 2024-01-06 17:52 | MRI Report ---
PROCEDURE: Brain WO INDICATIONS: CVA sx, L occipital TECHNIQUE: Noncontrast axial T1 spin echo, axial T2 fast spin echo, sagittal and axial FLAIR, coronal T2 fast sp in echo, axial gradient echo, axial diffusion and ADC through the brain. COMPARISON: 07/17/2017 FINDINGS: Image quality: Diagnostic CSF spaces: Basal cisterns are patent. Lateral ventricles are symmetric. Volume: Periventricular white matter signal abnormality is commonly seen with chronic microangiopathy . Volume loss is present. These findings are mild. Brain: Acute infarct is seen in the left occipital lobe. Questionable adjacent DVA. No other confluen t areas of edema. Craniofacial structures: Unremarkable craniofacial structures where visualized. IMPRESSION: Acute infarct in the left occipital lobe. Reviewed by: Wicho Easley MD on 01/06/2024 5:50 PM PDT Approved by: Wicho Easley MD on 01/06/2024 5:50 PM PDT Station ID: [id number]
--- NOTE | 2024-01-06 18:04 | CT Report ---
PROCEDURE: Angio Head/Neck INDICATIONS: CVA sx, L occipital TECHNIQUE: After the administration of intravenous contrast, 1 mm thick sections acquired from the aortic arch t hrough the [place]. 3-dimensional hshszan-actztbsxj-bwfpdyhvzt (MIP) and/or volume renderin g reformats were acquired of the central intracranial vasculature and neck separately. For radiation dose reduction, the following was used: automated exposure control, adjustment of mA and/or kV acco rding to patient size. CONTRAST: 80ml [id number] COMPARISON: Correlation is made with the accompanying imaging. Correlation is also made with the jon or head CT angiogram and neck CT angiogram, 12/31/2019. FINDINGS: Image quality: Diagnostic. HEAD CT: CSF Spaces: Basal cisterns are patent. No extra-axial fluid collections. Ventricles are normal in size and shape. Brain: No significant abnormality is seen for scanning technique. The known infarct of the left occi pital lobe is not well seen on this study. Skull and face: Calvarium and visualized facial bones appear intact, without suspicious lesions. Sinuses: Visualized sinuses and mastoids are clear. HEAD CT ANGIOGRAPHY: Anterior circulation: Intracranial internal carotid arteries are normal in size and flow. The flow within the paired anterior cerebral arteries is normal and symmetric. The flow within the middle cer ebral arteries is normal and symmetric. The anterior communicating artery is seen. No aneurysms are seen. Posterior circulation: The visualized portions of the vertebral arteries demonstrate normal caliber, and join to form a normal appearing basilar artery. Incidental note is made of a prominent right p osterior communicating artery, with a diminutive right P1 segment. This is attributed to a type origin of the right posterior cerebral artery, which is considered to be a developmental variant of typically no clinical consequence. The flow within the posterior cerebral arteries is normal and sy mmetric. No stenoses, occlusions, or aneurysms. NECK CT ANGIOGRAPHY: Carotid system: Incidental note is made of a common trunk off of the aorta of the right brachiocepha lic artery and the left common carotid artery (bovine type aortic arch). This is considered to be a d evelopmental variant of typically no clinical consequence. The origins of the common carotid arteri es appear patent. The common carotid arteries demonstrate normal caliber and courses. The bifurcati on regions demonstrate atherosclerotic irregularity and calcification. There is 50% narrowing seen in volving the origin of the right internal carotid artery. No significant stenosis can be seen involvin g the origin of the left vertebral artery. The more distal internal carotid arteries demonstrate norm al course and caliber. Posterior circulation: No significant stenosis can be seen involving the origins of the vertebral ar teries. The more distal extracranial vertebral arteries demonstrate no significant stenosis. There is tortuosity noted of both V3 segments. History is given to the area of questionable abnormality at th e level of the lateral mass of C2. Within this region, tortuosity can be seen, it without a pseudoane urysm or findings of dissection. Soft tissues: Visualized neck soft tissues demonstrate no suspicious abnormalities. Bones: No suspicious bony lesions. Visualized cervical spine appears normally aligned. Sternotomy changes are noted. IMPRESSION: No significant intracranial arterial abnormality is seen. No significant abnormality is seen within the arteries of the neck. Additional findings: [place] developmental anomalies Tortuosity seen of the V3 segments Bovine type aortic branching pattern The estimate of stenosis included in the report of the imaging study was calculated using the NASCET method Reviewed by: Jim Mayers MD on 01/06/2024 5:03 PM AKDT Approved by: Jim Mayers MD on 01/06/2024 5:03 PM KIMBERLY Station ID: [id number]
--- NOTE | 2024-01-06 18:05 | CT Report ---
PROCEDURE: Head WO INDICATIONS: CVA sx, L occipital TECHNIQUE: Noncontrast 4.5 mm thick angled axial sections acquired from the foramen magnum to the vertex. For r adiation dose reduction, the following was used: automated exposure control, adjustment of mA and/or kV according to patient size. COMPARISON: 12/31/2019 Correlation is made with the accompanying imaging. FINDINGS: Image quality: Excellent. CSF spaces: Basal cisterns are patent. No extra-axial fluid collections. Ventricles are normal in size and shape. Brain: There is new low density seen within the left occipital lobe, which cannot be seen in 2020. N o midline shift. No intracranial masses or hemorrhage. Skull and face: Calvarium and visualized facial bones are intact, without suspicious lesions. Sinuses: Visualized sinuses and mastoids are clear. IMPRESSION: Acute low density seen within the left occipital lobe, which corresponds to the acute left occipital lobe infarct that is well seen on the accompanying MRI. No intracranial hemorrhage is seen. Reviewed by: Jim Mayers MD on 01/06/2024 5:04 PM KIMBERLY Approved by: Jim Mayers MD on 01/06/2024 5:04 PM KIMBERLY Station ID: [id number]
[2024-01-06] MEDS ORDERED: ONDANSETRON 4 MG/2 ML VIAL IVP PRN (18:21)
[2024-01-06] MEDS ORDERED: ACETAMINOPHEN 500 MG TABLET PO PRN (18:21)
[2024-01-06] MEDS: iohexoL-300 100 ML VIAL IVP ONE (18:22)
[2024-01-06] MEDS: ASPIRIN CHEW 81 MG TABLET PO STA (18:50)
[2024-01-06] MEDS: ATORVASTATIN 40 MG TABLET PO STA (18:51)
[2024-01-06] MEDS: SODIUM CHLORIDE 0.9% 1,000 ML IV STA (18:51)
[2024-01-07] MEDS: ASPIRIN CHEW 81 MG TABLET PO SCH (09:16)
--- NOTE | 2024-01-07 09:20 | PHARMACY PROGRESS NOTE ---
- Best Possible Medication History Admit Date and Time: Processed by: Nursing Medications reviewed in ED?: Yes Medication History completed: Yes Patient Interview: Completed Secondary Source(s): Insurance records As the person ultimately responsible for medication therapy, providers are able to order a medication from an existing home medication list in [facility] via the "Reconcile Routine" prior to Confirmation of that medication by it support specialist. Such practice is discouraged except when the physician, in their clinical judgment, deems that a medical need exists for a medication without regard to previous use.
--- NOTE | 2024-01-07 09:32 | PHARMACY PROGRESS NOTE ---
- Best Possible Medication History Admit Date and Time: Processed by: Nursing Medications reviewed in ED?: Yes Medication History completed: Yes Patient Interview: Completed Secondary Source(s): Insurance records As the person ultimately responsible for medication therapy, providers are able to order a medication from an existing home medication list in [facility] via the "Reconcile Routine" prior to Confirmation of that medication by ground support equipment mechanic. Such practice is discouraged except when the physician, in their clinical judgment, deems that a medical need exists for a medication without regard to previous use.
--- NOTE | 2024-01-07 14:34 | ED Physician Documentation ---
ED Addendum - Addendum Addendum: 01/07/24 14:33 The patient was signed out to me at change of shift, pending echocardiogram after presenting to the emergency department yesterday with strokelike symptoms. She was found to have an occipital infarct but was outside of the window for treatment thrombolytics. She has remained stable throughout her stay in the emergency department, but was boarding here, pending echocardiogram by neurologist recommendation, due to history of atrial myxoma. Echo was performed and was actually normal. The patient is stable for discharge home. She has been advised to follow-up with her primary doctor, to take a daily aspirin, and to start the cholesterol medication that has been prescribed for her. We have discussed the usual indications for return. Final impression: 1. CVA 2. History of atrial myxoma Disposition: Home in stable and improved condition.
[2024-01-07 15:06] VITALS: BP 149/70; O2SAT 100
[2024-01-07] MEDS ORDERED: ATORVASTATIN 40 MG TABLET PO SCH (21:00)
== END 2024-01-07 15:29 | disposition home or self-care (01) ==
LOC: ED 15:06
DX: I63.89 Other cerebral infarction (principal); H53.461 Homonymous bilateral field defects, right side; R29.703 NIHSS score 3; Z86.018 Personal history of other benign neoplasm
CPT/HCPCS: 36415; 70450; 70496; 70498; 70551; 80053; 85025; 85610; 93005; 93307; 99284; A9270; Q9967